=== PATIENT | female | born 1955 | race American Indian/Alaskan Native ===

== ENCOUNTER 2019-04-13 13:39 | Outpatient (CLI) | payer OTHER ==
[2019-04-13 14:24] LABS: Blood Urea Nitrogen 13 mg/dL (7-17)
== END 2019-04-13 13:40 | disposition home or self-care (01) ==
LOC: MRI 13:39
PROVIDERS: ATTEND Otolaryngology
DX: H91.90 Unspecified hearing loss, unspecified ear (principal)
CPT/HCPCS: 36415; 82565; 84520